=== PATIENT | female | born 1950 | race Caucasian/White ===

== ENCOUNTER 2018-09-11 11:50 | Emergency (ER) | payer MEDICARE ==
--- NOTE | 2018-09-11 12:20 | CT ---
HEAD CT WITHOUT CONTRAST: Date: 09/11/18 HISTORY: Pain. Trauma. Laceration to back of head. Status post fall. COMPARISON: None. FINDINGS: No parenchymal hemorrhage. No extra-axial hematoma. No midline shift. Basilar cisterns are patent. Br ain volume, age-appropriate. Cortical griffin-white matter differentiation preserved. Ventricles and sul ci are patent and symmetric. White matter hypodensities due to chronic small vessel ischemic disease. Left-sided choroidal fissure cyst is noted, incidentally. Calvarium is intact. Adequate aeration of the sinuses and mastoid air cells. Minimal induration of th e posterior midline scalp. IMPRESSION: No intracranial post-traumatic sequelae. POS: [facility]
[2018-09-11] MEDS ORDERED: Bacitracin Zinc 1 Packet ONE (12:42)
== END 2018-09-11 12:47 | disposition home or self-care (01) ==
LOC: ERS 11:50
DX: S01.01XA Laceration without foreign body of scalp, initial encounter (principal); E11.40 Type 2 diabetes mellitus with diabetic neuropathy, unspecified; E78.1 Pure hyperglyceridemia; E27.1 Primary adrenocortical insufficiency; F32.9 Major depressive disorder, single episode, unspecified; I10 Essential (primary) hypertension; W18.2XXA Fall in (into) shower or empty bathtub, initial encounter
CPT/HCPCS: 12001; 70450

== ENCOUNTER 2020-08-09 20:25 | Emergency (ER) | payer MEDICARE ==
[2020-08-09] MEDS ORDERED: Ketorolac Tromethamine 30 MG/ML VIAL ONE (20:42)
[2020-08-09] MEDS ORDERED: Morphine 4 MG/ML VIAL ONE (20:42)
[2020-08-09] MEDS ORDERED: Midazolam HCl 5 mg/ml Vial ONE (21:15)
--- NOTE | 2020-08-09 21:34 | RAD ---
LEFT WRIST THREE VIEWS: 08/09/20 HISTORY: Patient tripped and fell with wrist injury. There is a comminuted intra-articular slightly impacted and dorsally angulated distal radial fracture and associated ulnar styloid fracture. IMPRESSION: Distal radial and ulnar fractures. POS: OFF
--- NOTE | 2020-08-09 22:00 | RAD ---
LEFT WRIST TWO VIEWS: 08/09/20 HISTORY: Post reduction. The distal radial and ulnar styloid fractures have been reduced and are in fairly satisfactory positi on on these post reduction views. IMPRESSION: Reduction of distal radial and ulnar fractures. POS: OFF
== END 2020-08-09 22:09 | disposition home or self-care (01) ==
LOC: ERS 20:25
DX: S52.502A Unspecified fracture of the lower end of left radius, initial encounter for closed fracture (principal); S52.602A Unspecified fracture of lower end of left ulna, initial encounter for closed fracture; I50.9 Heart failure, unspecified; E11.40 Type 2 diabetes mellitus with diabetic neuropathy, unspecified; E78.2 Mixed hyperlipidemia; Z79.82 Long term (current) use of aspirin; Z79.899 Other long term (current) drug therapy; W01.0XXA Fall on same level from slipping, tripping and stumbling without subsequent striking against object, initial encounter
CPT/HCPCS: 25605; 96374; 96375; 99152; J1885; J2250; J2270

== ENCOUNTER 2020-08-17 05:38 | Day surgery (SDC) | payer MEDICARE ==
[2020-08-15 11:07] VITALS: BMI 28.6
[2020-08-17] MEDS ORDERED: Midazolam HCl 2 mg/2 ml Vial ONE (06:43)
[2020-08-17] MEDS ORDERED: Fentanyl 100 MCG/2 ML VIAL ONE (06:43)
[2020-08-17] MEDS ORDERED: Ropivacaine 0.2% 550 ML 550 ML NERVE BLCK SCH (07:45)
[2020-08-17] MEDS ORDERED: Zolpidem Tartrate 5 MG TAB PO PRN (07:45)
[2020-08-17] MEDS ORDERED: HYDROcodone/Acetaminophen 10/325 mg Tablet PO PRN ×2 (07:45)
[2020-08-17] MEDS ORDERED: traMADol HCl 50 MG TAB PO PRN ×2 (07:45)
[2020-08-17] MEDS ORDERED: Promethazine HCl 25 MG/ML VIAL IM PRN (07:45)
[2020-08-17] MEDS ORDERED: Ondansetron PF 4 MG/2 ML Vial IVP PRN (07:45)
[2020-08-17] MEDS ORDERED: Fentanyl 100 MCG/2 ML VIAL SLOW IVP PRN (07:47)
[2020-08-17] MEDS ORDERED: Ropivacaine 2% HCl/PF (20 MG/10 ML VIAL) ONE (09:05)
[2020-08-17] MEDS ORDERED: Lidocaine 1% PF 5 ML VIAL ONE (09:05)
[2020-08-17] MEDS ORDERED: PROPOFOL 200 MG/20 ML VIAL ONE (09:05)
[2020-08-17] MEDS ORDERED: Ropivacaine 0.5% HCl/PF (150 MG/30 ML VIAL) ONE (09:05)
== END 2020-08-17 10:15 | disposition home or self-care (01) ==
LOC: SDC 05:38
PROVIDERS: ATTEND Orthopaedic Surgery
PROC: 0PSJ04Z Reposition Left Radius with Internal Fixation Device, Open Approach (ICD-10-PCS; principal; 2020-08-17)
PROC: 3E0T3BZ Introduction of Anesthetic Agent into Peripheral Nerves and Plexi, Percutaneous Approach (ICD-10-PCS; 2020-08-17)
DX: S52.572A Other intraarticular fracture of lower end of left radius, initial encounter for closed fracture (principal); S52.612A Displaced fracture of left ulna styloid process, initial encounter for closed fracture; G89.18 Other acute postprocedural pain; H40.9 Unspecified glaucoma; I12.9 Hypertensive chronic kidney disease with stage 1 through stage 4 chronic kidney disease, or unspecified chronic kidney disease; E11.22 Type 2 diabetes mellitus with diabetic chronic kidney disease; N18.9 Chronic kidney disease, unspecified; E27.1 Primary adrenocortical insufficiency; G30.9 Alzheimer's disease, unspecified; F02.80 Dementia in other diseases classified elsewhere, unspecified severity, without behavioral disturbance, psychotic disturbance, mood disturbance, and anxiety; G62.9 Polyneuropathy, unspecified; M19.90 Unspecified osteoarthritis, unspecified site; E78.00 Pure hypercholesterolemia, unspecified; K21.9 Gastro-esophageal reflux disease without esophagitis; G47.00 Insomnia, unspecified; E03.9 Hypothyroidism, unspecified; M10.9 Gout, unspecified; Z79.52 Long term (current) use of systemic steroids; Z79.82 Long term (current) use of aspirin; Z79.899 Other long term (current) drug therapy; Z88.8 Allergy status to other drugs, medicaments and biological substances; W01.0XXA Fall on same level from slipping, tripping and stumbling without subsequent striking against object, initial encounter
CPT/HCPCS: 25609; 64416; 73100; 76000; 93005; A4306; C1713 ×2; 93010; J0690; J2250; J2704; J2795; J3010

== ENCOUNTER 2020-08-17 23:45 | Emergency (ER) | payer MEDICARE | END 2020-08-18 01:45 | disposition home or self-care (01) | LOC: ERS 23:45 | DX: G89.18 Other acute postprocedural pain (principal); M25.532 Pain in left wrist; E11.40 Type 2 diabetes mellitus with diabetic neuropathy, unspecified; E78.2 Mixed hyperlipidemia; I13.0 Hypertensive heart and chronic kidney disease with heart failure and stage 1 through stage 4 chronic kidney disease, or unspecified chronic kidney disease; I50.9 Heart failure, unspecified; N18.2 Chronic kidney disease, stage 2 (mild); Z79.82 Long term (current) use of aspirin; Z79.899 Other long term (current) drug therapy | CPT/HCPCS: 99283 ==

== ENCOUNTER 2022-06-27 11:08 | Outpatient (CLI) | payer MEDICARE | END 2022-06-27 11:09 | disposition home or self-care (01) | LOC: MRI 11:08 | PROVIDERS: ATTEND Internal Medicine | DX: M54.41 Lumbago with sciatica, right side (principal); M51.36 Other intervertebral disc degeneration, lumbar region; M51.37 Other intervertebral disc degeneration, lumbosacral region | CPT/HCPCS: 72148 ==